=== PATIENT | male | born 1990 | race Caucasian/White ===

== ENCOUNTER 2021-11-10 12:46 | Emergency (ER) | payer OTHER ==
[~2021-11-10] VITALS: Ht 157.5 cm; Wt 79.0 kg
[2021-11-10] MEDS ORDERED: IBUPROFEN 800MG TABLET PO ONE (15:15)
[2021-11-10 15:45] LABS: BASOPHILS % 0.5 % (0.0-2.0); HEMATOCRIT. 39.8 % (42.0-52.0); HEMOGLOBIN. 13.6 g/dL (14.0-18.0); MEAN CORPUSCULAR HEMOGLOBIN 31.5 pg (28.0-32.0); MEAN CORPUSCULAR VOLUME 92.5 fL (80.0-94.0); MEAN PLATELET VOLUME 7.7 fl (7.4-10.4); MONOCYTES % 5.3 % (2.0-8.0); NEUTROPHILS % 68.2 % (40.0-76.0); PLATELET 375 x1000/uL (130-400); RED BLOOD CELL COUNT 4.31 mill/uL (4.7-6.1); RED CELL DISTRIBUTION WIDTH 12.5 % (11.6-14.6)
[2021-11-10 16:06] LABS: CHLORIDE 107 mEq/L (98-107)
[2021-11-10 16:13] VITALS: BP 114/68
[2021-11-10] MEDS ORDERED: SULF1TAB48 MT (16:20)
[2021-11-10] MEDS ORDERED: CEPH500T MT (16:20)
== END 2021-11-10 17:10 | disposition home or self-care (01) ==
LOC: ER 12:46
DX: L03.115 Cellulitis of right lower limb (principal)
CPT/HCPCS: 36415; 73562; 80048; 85025; 99284